=== PATIENT | male | born 1990 | race Caucasian/White ===

== ENCOUNTER 2024-10-20 21:11 | Emergency (ER) | payer SELFPAY ==
[~2024-10-20] VITALS: Wt 83.9 kg
== END 2024-10-20 23:13 | disposition home or self-care (01) ==
LOC: ED 21:11
DX: S06.0X0A Concussion without loss of consciousness, initial encounter (principal); Z91.040 Latex allergy status; V09.9XXA Pedestrian injured in unspecified transport accident, initial encounter; Y93.89 Activity, other specified; Y92.89 Other specified places as the place of occurrence of the external cause; Y99.8 Other external cause status